=== PATIENT | male | born 1955 | race Caucasian/White ===

== ENCOUNTER 2022-03-16 08:18 | Inpatient (IN) ==
[2022-03-16 08:29] LABS: ABS Monocytes 0.7 10^3/ul (0-0.8); ABS Neutrophils 11.2 10^3/ul (1.5-7.7); Hematocrit 40 % (42-52); Hemoglobin 13.5 g/dL (14.0-18.0); Mean Corpuscular HGB Conc 34 g/dL (31-36); Mean Corpuscular Hemoglobin 30 pg (27-31); Mean Corpuscular Volume 90 fL (80-94); Mean Platelet Volume 7.1 fL (7.4-10.4); Platelet Count 297 10^3/uL (150-450); Red Blood Count 4.48 10^6 /uL (4.18-5.48); Red Cell Distribution Width 13 % (10-15); White Blood Count 12.9 10^3/uL (3.5-10.8)
[2022-03-16 08:30] LABS: Eosinophil % 0.3 %; Lymphocyte % 7.4 %
[2022-03-16] MEDS ORDERED: Iodixanol (CONTRAST) 320 MG/ML 100 ML SDV IV ONE (08:37)
[2022-03-16 08:45] LABS: Activated Partial Thrombo Time 27.2 seconds (26.0-38.0); INR 0.93 (0.89-1.11)
[2022-03-16 08:53] LABS: High Sens Troponin Baseline 14 pg/mL (<20)
[2022-03-16 09:12] LABS: ALT 17 U/L (7-52); AST 33 U/L (13-39); Albumin/Globulin Ratio 1.4 (1-3); Alkaline Phosphatase 57 U/L (35-149); Anion Gap 7 mmol/L (2-11); Blood Urea Nitrogen 14 mg/dL (6-24); CO2 Carbon Dioxide 30 mmol/L (22-32); Calcium 9.3 mg/dL (8.6-10.3); Chloride 100 mmol/L (101-111); Cholesterol 156 mg/dL; Globulin 2.9 g/dL (2-4); Glucose 92 mg/dL (70-100); HDL Cholesterol 63.3 mg/dL; LDL Cholesterol 76 mg/dL; Sodium 137 mmol/L (135-145); Total Protein 6.9 g/dL (6.4-8.9); Triglycerides 83 mg/dL; eGFR CKD-EPI 88.8 (>60)
[2022-03-16 10:08] LABS: High Sensitivity Troponin 1 Hr 13 pg/mL (<20)
[2022-03-16] MEDS ORDERED: Valproic Acid IV 1,000 MG in NS 0.9% 100 ml BAG 100 ML IVPB ONE (10:18)
[2022-03-16 10:48] LABS: C Reactive Protein < 1.00 mg/L (<8.01)
[2022-03-16] MEDS ORDERED: Enoxaparin 40 MG/0.4 ML SYR SUBCUT SCH ×2 (11:00→14:00)
[2022-03-16 12:09] LABS: TSH Ultra Thyroid Stim Horm 3.37 mcIU/mL (0.34-5.60)
[2022-03-16 12:49] LABS: Vitamin B12 > 1450 pg/mL (180-914)
[2022-03-16] MEDS: Lactated Ringers 1000 ml BAG 1,000 ML IV SCH (13:37)
[2022-03-16] MEDS: Enoxaparin 40 MG/0.4 ML SYR SUBCUT SCH (22:15)
[2022-03-17 06:44] LABS: ABS Basophils 0.1 10^3/ul (0-0.2); ABS Eosinophils 0.3 10^3/ul (0-0.6); ABS Lymphocytes 2.2 10^3/ul (1.0-4.8); ABS Monocytes 0.6 10^3/ul (0-0.8); ABS Neutrophils 4.7 10^3/ul (1.5-7.7); Eosinophil % 3.4 %; Hematocrit 36 % (42-52); Lymphocyte % 28.1 %; Mean Corpuscular HGB Conc 33 g/dL (31-36); Mean Corpuscular Hemoglobin 30 pg (27-31); Mean Corpuscular Volume 90 fL (80-94); Mean Platelet Volume 7.4 fL (7.4-10.4); Platelet Count 262 10^3/uL (150-450); Red Blood Count 3.99 10^6 /uL (4.18-5.48); Red Cell Distribution Width 14 % (10-15); White Blood Count 7.8 10^3/uL (3.5-10.8)
[2022-03-17 07:03] LABS: Calcium 8.6 mg/dL (8.6-10.3); Potassium 3.7 mmol/L (3.5-5.0); eGFR CKD-EPI 97.8 (>60)
[2022-03-17] MEDS: Lactated Ringers 1000 ml BAG 1,000 ML IV SCH (07:30)
[2022-03-17] MEDS ORDERED: Lactated Ringers 1000 ml BAG 1,000 ML IV ONE (18:13)
[2022-03-17] MEDS: Enoxaparin 40 MG/0.4 ML SYR SUBCUT SCH (21:16)
[2022-03-18] MEDS ORDERED: Lorazepam PYXIS KEY PRN (15:16)
[2022-03-18] MEDS ORDERED: LORazepam 2 mg VIAL 1 ml IV PUSH ONE (15:16)
[2022-03-18] MEDS ORDERED: Gadoteridol (CONTRAST) 279.3 MG/ML 10 ML IV ONE (16:15)
[2022-03-18 16:51] VITALS: BP 131/66
== END 2022-03-18 19:15 | disposition home or self-care (01) | DRG 101 ==
LOC: ED 08:18 → EDHOLD 08:18 → SUATTDRO 10:52 → MEDTELE 14:17
PROVIDERS: ADMIT Internal Medicine; ATTEND Internal Medicine

== ENCOUNTER 2023-06-09 11:35 | Inpatient (IN) ==
[2023-06-09 13:02] LABS: ABS Eosinophils 0.1 10^3/uL (0.0-0.5); ABS Lymphocytes 1.3 10^3/uL (1.0-4.8); ABS Monocytes 0.4 10^3/uL (0.0-1.1); ABS Neutrophils 6.5 10^3/uL (1.5-7.6); ABS Nucleated RBC 0.01 10^3/ul; Eosinophil % 1.1 %; Hemoglobin 14.2 g/dL (13.2-16.3); Lymphocyte % 15.9 %; Mean Corpuscular Hemoglobin 31.3 pg (27-33); Mean Corpuscular Hgb Conc 33.9 g/dL (31-36); Mean Corpuscular Volume 92.3 fL (80-97); Mean Platelet Volume 7.8 fL (7.5-11.2); Nucleated Red Blood Cells % 0.1 %/100WBC (0.0-0.8); Platelet Count 257 10^3/uL (150-450); Red Blood Count 4.54 10^6/uL (4.06-5.63); Red Cell Distribution Width 13.4 % (12-17); White Blood Count 8.4 10^3/uL (3.6-10.2)
[2023-06-09 13:33] LABS: ALT 15 U/L (7-52); Albumin 3.8 g/dL (3.2-5.2); Albumin/Globulin Ratio 1.3 (1-3); Alkaline Phosphatase 42 U/L (35-149); Anion Gap 5 mmol/L (2-16); Blood Urea Nitrogen 14 mg/dL (6-24); CO2 Carbon Dioxide 29 mmol/L (22-32); Calcium 8.9 mg/dL (8.6-10.3); Chloride 97 mmol/L (101-111); Creatinine, Serum 1.02 mg/dL (0.67-1.17); Globulin 2.9 g/dL (2-4); Glucose 102 mg/dL (70-100); Sodium 131 mmol/L (135-145); Total Bilirubin 0.4 mg/dL (0.2-1.0); Total Protein 6.7 g/dL (6.4-8.9); eGFR CKD-EPI 80.6 (>60)
[2023-06-09] MEDS: Enoxaparin 40 MG/0.4 ML SYR SUBCUT SCH (21:02)
[2023-06-09] MEDS ORDERED: NS 0.9% 1000 ml BAG 1,000 ML IV SCH (23:15)
[2023-06-10 06:30] LABS: Calcium 8.8 mg/dL (8.6-10.3); Creatinine, Serum 0.95 mg/dL (0.67-1.17); Potassium 3.9 mmol/L (3.5-5.0); eGFR CKD-EPI 87.7 (>60)
[2023-06-10] MEDS: Enoxaparin 40 MG/0.4 ML SYR SUBCUT SCH (20:10)
[2023-06-11] MEDS: Enoxaparin 40 MG/0.4 ML SYR SUBCUT SCH (21:34)
[2023-06-12] MEDS: Enoxaparin 40 MG/0.4 ML SYR SUBCUT SCH (22:33)
[2023-06-13 07:46] LABS: Albumin 3.7 g/dL (3.2-5.2); Albumin/Globulin Ratio 1.4 (1-3); Calcium 8.9 mg/dL (8.6-10.3); Creatinine, Serum 0.95 mg/dL (0.67-1.17); Globulin 2.7 g/dL (2-4); Potassium 3.9 mmol/L (3.5-5.0); Total Bilirubin 0.5 mg/dL (0.2-1.0); Total Protein 6.4 g/dL (6.4-8.9); eGFR CKD-EPI 87.7 (>60)
[2023-06-13] MEDS: Enoxaparin 40 MG/0.4 ML SYR SUBCUT SCH (19:51)
[2023-06-14] MEDS: Enoxaparin 40 MG/0.4 ML SYR SUBCUT SCH (20:20)
[2023-06-15] MEDS ORDERED: Influenza vaccine *QUAD* *2023-24* 0.5 ML SYRINGE IM ONE (11:00)
[2023-06-15] MEDS: Enoxaparin 40 MG/0.4 ML SYR SUBCUT SCH (19:25)
[2023-06-15 23:57] LABS: Free Valproic Acid 10 mcg/mL (5 - 25); Total Valproic Acid 51 mcg/mL (50 - 125)
[2023-06-16 05:46] VITALS: BP 120/62
[2023-06-16 09:31] LABS: Rapid COVID-19 Molecular Undetected (Undetected)
== END 2023-06-16 11:43 | DRG 101 ==
LOC: ED 11:35 → EDHOLD 11:35 → SSU 18:05
PROVIDERS: ADMIT Hospitalist; ATTEND Student in an Organized Health Care Education/Training Program